=== PATIENT | female | born 1950 | race Two or more races ===

== ENCOUNTER 2021-04-23 07:37 | Outpatient (CLI) | payer OTHER ==
[2021-04-24] MEDS ORDERED: PRILOSEC OTC20 MG PO (15:48)
[2021-04-24] MEDS ORDERED: DICY20TA PO (15:48)
[2021-04-24] MEDS ORDERED: ISOSORBIDE DINI30 MG PO (15:49)
[2021-04-24] MEDS ORDERED: NORVASC5 MG PO (15:49)
[2021-04-24] MEDS ORDERED: CLONAZEPAM1 M1 PO (15:49)
[2021-04-24] MEDS ORDERED: HYDROCHLOROTHIA25 MG PO (15:50)
== END 2021-04-23 07:38 | disposition home or self-care (01) ==
LOC: NUCLEAR 07:37
PROVIDERS: ATTEND Internal Medicine Hematology & Oncology
DX: I26.99 Other pulmonary embolism without acute cor pulmonale (principal); K57.30 Diverticulosis of large intestine without perforation or abscess without bleeding; R10.32 Left lower quadrant pain

== ENCOUNTER 2021-04-24 07:42 | Outpatient (CLI) | payer OTHER ==
[2021-04-24] MEDS ORDERED: PRILOSEC OTC20 MG PO (15:48)
[2021-04-24] MEDS ORDERED: DICY20TA PO (15:48)
[2021-04-24] MEDS ORDERED: NORVASC5 MG PO (15:49)
[2021-04-24] MEDS ORDERED: CLONAZEPAM1 M1 PO (15:49)
[2021-04-24] MEDS ORDERED: ISOSORBIDE DINI30 MG PO (15:49)
[2021-04-24] MEDS ORDERED: HYDROCHLOROTHIA25 MG PO (15:50)
== END 2021-04-24 07:58 | disposition home or self-care (01) ==
LOC: TOM 07:42
PROVIDERS: ATTEND Internal Medicine Hematology & Oncology
DX: K57.30 Diverticulosis of large intestine without perforation or abscess without bleeding (principal); I26.99 Other pulmonary embolism without acute cor pulmonale; Z86.711 Personal history of pulmonary embolism; I10 Essential (primary) hypertension; R10.32 Left lower quadrant pain
CPT/HCPCS: 71260; 71046; Q9965; 71275

== ENCOUNTER 2021-04-24 11:30 | Inpatient (IN) | payer OTHER ==
[~2021-04-24] VITALS: Ht 160 cm; Wt 69.4 kg
[2021-04-24] MEDS ORDERED: PRILOSEC OTC20 MG PO (15:48)
[2021-04-24] MEDS ORDERED: DICY20TA PO (15:48)
[2021-04-24] MEDS ORDERED: NORVASC5 MG PO (15:49)
[2021-04-24] MEDS ORDERED: ISOSORBIDE DINI30 MG PO (15:49)
[2021-04-24] MEDS ORDERED: CLONAZEPAM1 M1 PO (15:49)
[2021-04-24] MEDS ORDERED: HYDROCHLOROTHIA25 MG PO (15:50)
[2021-05-01] MEDS ORDERED: IRBESARTAN150 MG (08:32)
[2021-05-01] MEDS ORDERED: ELIQUIS5 MG (08:32)
[2021-05-01] MEDS ORDERED: MIRTAZAPINE30 MG (08:32)
[2021-05-01] MEDS ORDERED: ISOSORBIDE MONO30 M2 (08:33)
[2021-05-01] MEDS ORDERED: MONTELUKAST SOD10 MG (08:33)
[2021-05-01] MEDS ORDERED: SIMVASTATIN20 MG (08:33)
[2021-05-01] MEDS ORDERED: OMEPRAZOLE20 MG (08:33)
[2021-05-01] MEDS ORDERED: DICLOFENAC SOD100 GM (08:33)
[2021-05-01] MEDS ORDERED: VITAMIN D3125 MC1 (08:34)
[2021-05-02] MEDS ORDERED: OMEPRAZOLE20 MG (10:12)
[2021-05-07] MEDS ORDERED: PRILOSEC OTC20 MG PO (10:50)
== END 2021-05-07 15:07 | disposition home or self-care (01) | DRG 333 ==
LOC: EDUNIT# 11:30 → O/R 05-01 08:00 → SURH 05-01 10:45
PROVIDERS: ADMIT Surgery; ATTEND Surgery
PROC: 3E0F7SF Introduction of Other Gas into Respiratory Tract, Via Natural or Artificial Opening (ICD-10-PCS; principal; 2021-05-01 10:45)
PROC: 0DTP4ZZ Resection of Rectum, Percutaneous Endoscopic Approach (ICD-10-PCS; principal; 2021-05-01 10:45)
DX: K57.32 Diverticulitis of large intestine without perforation or abscess without bleeding (principal); K55.1 Chronic vascular disorders of intestine; R10.32 Left lower quadrant pain; K59.09 Other constipation; Z20.822 Contact with and (suspected) exposure to COVID-19

== ENCOUNTER 2022-03-18 11:56 | Emergency (ER) | payer OTHER ==
[~2022-03-18] VITALS: Ht 160 cm; Wt 75.7 kg
[~2022-03-18 11:56] MED LIST: CLONAZEPAM1 M1 PO; DICLOFENAC SOD100 GM; DICY20TA PO; ELIQUIS5 MG; HYDROCHLOROTHIA25 MG PO; IRBESARTAN150 MG; ISOSORBIDE DINI30 MG PO; ISOSORBIDE MONO30 M2; MIRTAZAPINE30 MG; MONTELUKAST SOD10 MG; NORVASC5 MG PO; OMEPRAZOLE20 MG; PRILOSEC OTC20 MG PO; SIMVASTATIN20 MG; VITAMIN D3125 MC1
[2022-03-18] MEDS ORDERED: CIPRO500 MG PO (17:04)
== END 2022-03-18 17:25 | disposition home or self-care (01) ==
LOC: ER 11:56
DX: U07.1 COVID-19 (principal); N39.0 Urinary tract infection, site not specified; I10 Essential (primary) hypertension; Z72.0 Tobacco use; K76.89 Other specified diseases of liver